=== PATIENT | female | born 1955 | race Two or more races ===

== ENCOUNTER → 2024-06-19 | Outpatient (CLI) | payer MEDICARE, MEDICAID, SELFPAY ==
[2024-06-19 08:48] LABS: Glucose Estimated Average 134 mg/dL (80-131); Hemoglobin A1C 6.3 % Hgb (4.8-6.0)
[2024-06-19 08:59] LABS: Anion Gap 5 (7-16); BUN/Creatinine Ratio 16 Ratio (12-20); Blood Urea Nitrogen 21 mg/dL (9-23); Calcium 10.4 mg/dL (8.3-10.6); Carbon Dioxide 32.2 mMol/L (20.0-31.0); Chloride 103 mMol/L (98-107); Creatinine (Component) 1.3 mg/dL (0.6-1.3); Glucose 84 mg/dL (74-106); Osmolality,Calculated 281 (275-295); Potassium 4.6 mMol/L (3.4-5.1); Sodium 140 mMol/L (136-145); eGFR 44 See Note
== END | disposition home or self-care (01) ==
PROVIDERS: PCP Family Medicine; Referring Provider Family Medicine; Visit Provider Family Medicine
DX: E11.65 Type 2 diabetes mellitus with hyperglycemia (principal)
CPT/HCPCS: 36415; 80048; 83036

== ENCOUNTER → 2024-09-12 | Outpatient (CLI) | payer MEDICARE, MEDICAID, SELFPAY ==
[2024-09-12 08:48] LABS: Anion Gap 7 (7-16); BUN/Creatinine Ratio 15 Ratio (12-20); Blood Urea Nitrogen 20 mg/dL (9-23); Calcium 9.6 mg/dL (8.3-10.6); Carbon Dioxide 31.7 mMol/L (20.0-31.0); Chloride 102 mMol/L (98-107); Creatinine (Component) 1.3 mg/dL (0.6-1.3); Glucose 92 mg/dL (74-106); Osmolality,Calculated 283 (275-295); Potassium 4.6 mMol/L (3.4-5.1); Sodium 141 mMol/L (136-145); eGFR 44 See Note
[2024-09-12 08:52] LABS: Creatinine MALB Rnd Ur 30 mg/dL (30-125); Microalbumin Creat Ratio 13 mg/gCrea (<30); Microalbumin, Random Urine 4 mg/L (0-300)
[2024-09-12 09:00] LABS: Glucose Estimated Average 137 mg/dL (80-131); Hemoglobin A1C 6.4 % Hgb (4.8-6.0)
== END | disposition home or self-care (01) ==
LOC: COPL 07:01
PROVIDERS: PCP Family Medicine; Referring Provider Family Medicine; Visit Provider Family Medicine
DX: E11.65 Type 2 diabetes mellitus with hyperglycemia (principal)
CPT/HCPCS: 36415; 80048; 82043; 82570; 83036

== ENCOUNTER → 2024-12-11 | Outpatient (CLI) | payer MEDICARE, MEDICAID, SELFPAY ==
[2024-12-11 08:58] LABS: Glucose Estimated Average 131 mg/dL (80-131); Hemoglobin A1C 6.2 % Hgb (4.8-6.0)
== END | disposition home or self-care (01) ==
LOC: COPL 07:14
PROVIDERS: PCP Family Medicine; Referring Provider Family Medicine; Visit Provider Family Medicine
DX: E11.21 Type 2 diabetes mellitus with diabetic nephropathy (principal)
CPT/HCPCS: 36415; 83036

== ENCOUNTER → 2024-12-16 | Outpatient (CLI) | payer MEDICARE, MEDICAID, SELFPAY ==
[2024-12-16 14:55] LABS: Collection Type, Urine Clean Catch
[2024-12-16 16:53] LABS: Bacteria,Urine Rare; Bilirubin,Urine Negative (Negative); Blood,Urine Negative (Negative); Clarity,Urine Clear (Clear/Hazy); Color,Urine Lt-Yellow (Lt Yel-Yel); Glucose, Urine 4+ (Negative); Ketones,Urine Negative (Negative); Leukocyte Esterase,Urine Positive (Negative); Nitrite,Urine Negative (Negative); PH,Urine 7.5 (5.0-7.0); Protein,Urine Negative (Neg - Trace); RBC,Urine 3 /hpf (0-3); Specific Gravity,Urine 1.015 (1.001-1.035); Squamous Epithelial Cell,Urine < 1 /hpf (0-5); Triple Phosphate Crystal,Urine Rare; Urobilinogen,Urine Negative mg/dL (0.0-1.0); WBC,Urine 129 /hpf (0-5)
== END | disposition home or self-care (01) ==
LOC: SLDO 14:51
PROVIDERS: Referring Provider Family Medicine; Visit Provider Family Medicine
DX: N30.00 Acute cystitis without hematuria (principal)
CPT/HCPCS: 81001; 87077; 87086; 87186

== ENCOUNTER → 2025-01-14 | Outpatient (CLI) | payer MEDICARE, MEDICAID, SELFPAY ==
--- NOTE | 2025-01-14 10:30 | XR_ITS ---
Examination: Screening digital mammography, bilateral Computer aided detection 3-D breast Tomosynthesis, bilateral Date and time of exam: January 14, 2025 1005 hours Compared to mammograms dating to January 02, 2020 Indication: Screening Technique: Nonmagnified MLO, CC views of the breasts to been obtained, reconstructed from 3-D Tomosynthesis images. R2 computer aided detection program utilized for evaluation of suspicious masses and/or abnormal calcifications. 3-D Tomosynthesis images obtained. Findings: Scattered areas of fibroglandular density 8mm focal asymmetry upper left breast posterior depth, 6.9 cm from the nipple Impression: BI-RADS Category 0: Incomplete: Need additional imaging evaluation Recommend follow-up spot tomographic views of 8 mm focal asymmetry upper left breast posterior depth, 6.9 cm from the nipple, that is spot tomographic views upper outer quadrant left breast as well as left breast sonography to complete the workup
== END | disposition home or self-care (01) ==
PROVIDERS: PCP Family Medicine; Referring Provider Family Medicine; Visit Provider Family Medicine
DX: Z12.31 Encounter for screening mammogram for malignant neoplasm of breast (principal); R92.323 Mammographic fibroglandular density, bilateral breasts; N64.89 Other specified disorders of breast
CPT/HCPCS: 77063; 77067

== ENCOUNTER → 2025-01-16 | Outpatient (CLI) | payer MEDICARE, MEDICAID, SELFPAY ==
--- NOTE | 2025-01-16 11:30 | XR_ITS ---
Examination: Retroperitoneal ultrasound, complete Technique: Multiple high resolution grayscale images of the retroperitoneum obtained, including kidneys and bladder. Exam date and time:January 16, 2025 1132 hours INDICATIONS: Recurrent urinary tract infections beginning one month ago FINDINGS: Right kidney 8.9 cm cortex 1.4 cm Left kidney 9.4 cm cortex 1.5 cm 7 mm midpole left renal calculus Mild renal parenchymal scar formation No bladder mass, bladder prevoid volume 595 cc Incidental note right lobe liver lesion vascular 5.6 x 5.4 x 5.7 cm IMPRESSION: 7 mm midpole left renal calculus No hydronephrosis Recommend CT scan abdomen pelvis pre and post intravenous contrast to assess vascular right lobe liver lesion 5.6 x 5.4 x 5.7 cm
== END | disposition home or self-care (01) ==
LOC: CDIM 11:18
PROVIDERS: PCP Family Medicine; Referring Provider Family Medicine; Visit Provider Family Medicine
DX: N20.0 Calculus of kidney (principal); N28.89 Other specified disorders of kidney and ureter; K76.9 Liver disease, unspecified
CPT/HCPCS: 76770

== ENCOUNTER → 2025-01-27 | Outpatient (CLI) | payer MEDICARE, MEDICAID, SELFPAY ==
[2025-01-27 09:07] LABS: Anion Gap 9 (7-16); BUN/Creatinine Ratio 18 Ratio (12-20); Blood Urea Nitrogen 24 mg/dL (9-23); Carbon Dioxide 30.5 mMol/L (20.0-31.0); Chloride 103 mMol/L (98-107); Creatinine (Component) 1.3 mg/dL (0.6-1.3); Glucose 111 mg/dL (74-106); Osmolality,Calculated 288 (275-295); Potassium 5.2 mMol/L (3.4-5.1); Sodium 142 mMol/L (136-145); eGFR 44 See Note
== END | disposition home or self-care (01) ==
LOC: COPL 07:34
PROVIDERS: PCP Family Medicine; Referring Provider Family Medicine; Visit Provider Family Medicine
DX: I10 Essential (primary) hypertension (principal); E11.65 Type 2 diabetes mellitus with hyperglycemia; K76.89 Other specified diseases of liver
CPT/HCPCS: 36415; 80048

== ENCOUNTER → 2025-02-05 | Outpatient (CLI) | payer MEDICARE, MEDICAID, SELFPAY ==
--- NOTE | 2025-02-05 09:15 | XR_ITS ---
Examination: Breast ultrasound, unilateral, left Date and time of exam: February 05, 2025 0925 hours INDICATIONS: Mammogram January 14, 2025 8mm focal asymmetry upper left breast MLO view Technique: Real-time blackmon scale ultrasonographic imaging performed left breast including all 4 quadrants as well as nipple retroareolar and axillary region. Findings: No cystic or solid mass IMPRESSION: BI-RADS Category 1: Negative study
--- NOTE | 2025-02-05 09:45 | XR_ITS ---
Examination: Diagnostic digital mammography, unilateral, left Computer aided detection 3-D breast Tomosynthesis, unilateral Date and time of exam: February 05, 2025 0941 hours INDICATIONS: Mammogram January 14, 2025 8mm focal asymmetry upper left breast MLO view, 6.9 cm from the nipple Technique: Nonmagnified MLO, CC views of the left breast have been obtained, reconstructed from 3-D Tomosynthesis images. R2 computer aided detection program utilized for evaluation of suspicious masses and/or abnormal calcifications. 3-D Tomosynthesis images obtained. Findings: Scattered areas of fibroglandular density No suspicious nodule is noted on the spot compression views Impression: BI-RADS category 2: Benign findings Return to yearly follow-up mammography
== END | disposition home or self-care (01) ==
PROVIDERS: PCP Family Medicine; Referring Provider Family Medicine; Visit Provider Family Medicine
DX: R92.322 Mammographic fibroglandular density, left breast (principal)
CPT/HCPCS: 76641; 77061; 77065; G0279

== ENCOUNTER → 2025-02-09 | Outpatient (CLI) | payer MEDICARE, MEDICAID, SELFPAY ==
--- NOTE | 2025-02-09 14:00 | XR_ITS ---
Examination: CT abdomen with intravenous contrast CT pelvis with intravenous contrast 2-D coronal reconstructions 2-D sagittal reconstructions Date and time of exam:February 09, 2025 1407 hours.. Comparison April 05, 2017 INDICATIONS: Diagnosis of the specified diseases of the liver CTDI: vol (mGy) 5.47 DLP: (mGycm) 292 Technique: Multiple axial sections of the abdomen and pelvis have been obtained. 64 slice high-resolution scanner used. 3 mm axial sections have been obtained, post intravenous injection 60 cc [id number] 2-D sagittal, coronal reconstructions obtained. Low dose protocols were performed. One or more of the following dose reduction techniques were used; automated exposure control, adjustment of the mA and/or KV according to patient size, use of iterative reconstruction technique. Findings: Mild enlargement cardiac contour Right lobe liver lesion, 5 cm No gallstones Spleen not enlarged Retrocardiac gastric hernia No renal or ureteral calculi, no hydronephrosis Aortic calcification no aneurysmal dilatation The soft tissue nodules in the anterior abdominal wall are again noted There is an additional soft tissue nodule, total 3 currently, the largest measuring 20 mm Normal appendix No bowel obstruction Intact urinary bladder Significant osteopenia IMPRESSION: 5 cm liver lesion, differential would include primary hepatocellular carcinoma, hepatic metastasis, recommend MRI abdomen follow-up pre and postcontrast
== END | disposition home or self-care (01) ==
LOC: CCTX 13:43
PROVIDERS: PCP Family Medicine; Referring Provider Family Medicine; Visit Provider Family Medicine
DX: K76.9 Liver disease, unspecified (principal)
CPT/HCPCS: 74177; A4649; Q9967

== ENCOUNTER 2025-02-25 07:56 | Outpatient (CLI) | payer MEDICARE, MEDICAID, SELFPAY ==
[2025-02-23 08:45] VITALS: BMI 24.1
[2025-02-24 08:41] LABS: Basophils # (Auto) 0.0 Thou/mm3 (0.0-0.2); Basophils % (Auto) 0 % (0-2.5); Eosinophils # (Auto) 0.1 Thou/mm3 (0.0-0.5); Eosinophils % (Auto) 2 % (0-10); Hematocrit 43.8 % (36.0-46.0); Hemoglobin 14.8 g/dL (12.0-16.0); Immature Granulocytes Auto 0.00 Thou/mm3 (0.00-0.00); Lymphocytes # (Auto) 1.7 Thou/mm3 (1.0-4.8); Lymphocytes % (Auto) 36 % (10-50); Mean Corpuscular HGB Conc 33.8 g/dl (31.0-37.0); Mean Corpuscular Hemoglobin 33.0 pg (25.0-35.0); Mean Corpuscular Volume 98 fL (80-100); Monocytes # (Auto) 0.4 Thou/mm3 (0.0-0.8); Monocytes % (Auto) 9 % (0-12); Neutrophils # (Auto) 2.5 Thou/mm3 (1.8-7.7); Neutrophils % (Auto) 53 % (37-80); Nucleated Red Blood Cell # 0.00 Thou/mm3 (0.00-0.00); Nucleated Red Blood Cell % 0 /100 WBC (0); Platelet Count 212 Thou/mm3 (140-440); RDW Standard Deviation 45.6 fL (36.4-46.3); Red Blood Count 4.49 Miln/mm3 (4.00-5.20); White Blood Count 4.8 Thou/mm3 (3.6-11.0)
[2025-02-24 08:59] LABS: INR 1.0 (0.9-1.3); Partial Thromboplastin Time 29.0 Seconds (22.0-36.0); Prothrombin Time 11.4 Seconds (9.0-12.2)
[2025-02-24 09:10] LABS: Blood Urea Nitrogen 23 mg/dL (9-23); Creatinine (Component) 1.4 mg/dL (0.6-1.3); Estimated Creatinine Clearance 29.8 mL/min (>60); eGFR 40 See Note
[2025-02-25] VITALS (9 sets, daily range): BP systolic 143–169; BP diastolic 58–86; PULSE 56–65; RESP 12–19; TEMP 36.1–36.4; O2SAT 95–100
--- NOTE | 2025-02-25 08:30 | XR_ITS ---
Examination: CT-guided percutaneous biopsy right lobe liver lesion CT abdomen without intravenous contrast INDICATIONS: 5 cm right lobe liver lesion on CT abdomen pelvis February 09, 2025 Date and time of procedure: February 25, 2025 1124 hours Informed consent provided. A timeout was completed verifying correct patient, procedure, site and positioning. Technique: Axial 3 mm sections were obtained for localization of the right lobe liver lesion Appropriate area is marked. The patient's site was prepped and draped in sterile fashion Maximal sterile barrier technique utilized, including hand hygiene Local anesthesia was obtained with 1% lidocaine. Low dose protocols were performed. One or more of the following dose reduction techniques were used; automated exposure control, adjustment of the mA and/or KV according to patient size, use of iterative reconstruction technique. Utilizing CT fluoroscopic guidance 2 core biopsies obtained of the right lobe liver lesion utilizing an 18-gauge core needle Patient appears in stable condition during this procedure. At completion of the procedure, the patient is in satisfactory condition. Estimated blood loss 2 cc Complete pathology report to follow. Impression: Successful percutaneous biopsy right lobe liver lesion
[2025-02-25] MEDS: fentaNYL CIT INJ 50 mCg/ML AMP 2ML IVP (11:49)
--- NOTE | 2025-02-25 15:58 | PC.NURSE ---
1205 patient is awake, alert, breathing unlabored,s/p liver biopsy, dressing to right upper abdomen dry with no active bleeding, patient transferred to [facility] for 1hr recovery. 1245 patient awake, alert, breathing unlabored, dressing dry with no bleeding, patient able to tolerate food tray with no nausea or vomiting and is ready to be discharged home, report given to Sary MARIN who will discharge patient home
== END 2025-02-25 13:06 | disposition home or self-care (01) ==
PROVIDERS: Radiology Diagnostic Radiology; PCP Family Medicine; Referring Provider Family Medicine; Visit Provider Family Medicine
DX: D13.4 Benign neoplasm of liver (principal); K74.69 Other cirrhosis of liver; Z01.812 Encounter for preprocedural laboratory examination
CPT/HCPCS: 47000; 36415; 77012; 82565; 84520; 85025; 85610; 85730; J3010

== ENCOUNTER → 2025-03-06 | Outpatient (CLI) | payer MEDICARE, MEDICAID, SELFPAY ==
[2025-03-06 08:41] LABS: Glucose Estimated Average 137 mg/dL (80-131); Hemoglobin A1C 6.4 % Hgb (4.8-6.0)
[2025-03-06 08:56] LABS: Cardiac Risk Estimate 2.5 RATIO (3.7-5.6); Cholesterol 177 mg/dL (132-200); HDL Cholesterol 70 mg/dL (40-60); LDL Cholesterol,Calculated 90 mg/dL (0-130); Triglycerides 85 mg/dL (30-150)
== END | disposition home or self-care (01) ==
LOC: COPL 07:46
PROVIDERS: PCP Family Medicine; Referring Provider Family Medicine; Visit Provider Family Medicine
DX: E11.65 Type 2 diabetes mellitus with hyperglycemia (principal)
CPT/HCPCS: 36415; 80061; 83036

== ENCOUNTER 2025-04-20 11:45 | Day surgery (SDC) | payer MEDICARE, MEDICAID, SELFPAY ==
[2025-04-20] VITALS (10 sets, daily range): BP systolic 133–227; BP diastolic 65–97; PULSE 60–68; RESP 12–18; TEMP 36.4–36.7; O2SAT 95–100; BMI 24.0
[2025-04-20] MEDS: DEXTROSE 50%-WATER INJ 50 ML SYRINGE 25 ML IVP (12:42)
[2025-04-20] MEDS: DEXTROSE 5%-WATER 500 ML 20 ML IV (13:22)
[2025-04-20] MEDS: hydrALAZINE INJ 20 MG/ML VIAL 10 MG IVP (13:24)
[2025-04-20] MEDS: MIDAZOLAM INJ 1 MG/ML VIAL 2 ML (ASD USE ONLY) 2 MG IVP (13:30)
[2025-04-20] MEDS: fentaNYL CIT INJ 50 mCg/ML AMP 2ML (ASD USE ONLY) IVP (13:32)
--- NOTE | 2025-04-20 14:06 | SUR.PHASEII ---
PT MORE AWAKE SITTING IN HIGH [employer] DRINKING WATER. PT REPORTED MILD DIZINESS.
== END 2025-04-20 14:24 | disposition home or self-care (01) ==
PROVIDERS: PCP Family Medicine; Referring Provider Specialist; Visit Provider Specialist
PROC: 0DBE8ZX Excision of Large Intestine, Via Natural or Artificial Opening Endoscopic, Diagnostic (ICD-10-PCS; CPT 45380; principal; 2025-04-20 12:15)
DX: Z12.11 Encounter for screening for malignant neoplasm of colon (principal); K64.1 Second degree hemorrhoids; K57.30 Diverticulosis of large intestine without perforation or abscess without bleeding
CPT/HCPCS: G0121; A4217; A4649; J0360; J1200; J2250; J3010; J7060

== ENCOUNTER → 2025-05-19 | Outpatient (CLI) | payer MEDICARE, MEDICAID, SELFPAY ==
[2025-05-19 09:45] LABS: Alanine Aminotransferase 28 U/L (10-49); Albumin, Serum 5.1 gm/dL (3.4-4.8); Alkaline Phosphatase 160 U/L (46-116); Aspartate Amino Transferase 35 U/L (0-34); Bilirubin,Direct 0.3 mg/dL (0.0-0.3); Bilirubin,Total 1.4 mg/dL (0.3-1.2); Total Protein 7.7 gm/dL (5.7-8.2)
[2025-05-19 10:00] LABS: INR 1.0 (0.9-1.3); Prothrombin Time 10.7 Seconds (9.0-12.2)
[2025-05-19 11:29] LABS: Ferritin 39 ng/mL (7.3-270.7); Iron 109 mcg/dL (50-170); Percent Iron Saturation 30 % (20-55); Total Iron Binding Capacity 357 mcg/dL (250-425); Unsaturated Iron Binding 248 (225-295)
[2025-05-19 12:22] LABS: AFP Non-Pregnant < 1.30 ng/mL (<8.10); Hepatitis A Antibody IgM Non Reactive (Non React); Hepatitis B Core Antibody IgM Non Reactive (Non React); Hepatitis B Surface Antigen Non Reactive (Non React); Hepatitis C Antibody Non Reactive (Non React)
[2025-05-22 06:22] LABS: ACTH, Plasma* 35 pg/mL (6-50)
[2025-05-26 06:30] LABS: ANA Screen, IFA POSITIVE (NEGATIVE); ANA Titer 1:160 titer; Alpha-1-Antitrypsin* 149 mg/dL (83-199); Ceruloplasmin* 28 mg/dL (14-48); Copper* 133 mcg/dL (70-175); Mitochondrial Ab NEGATIVE (NEGATIVE)
== END | disposition home or self-care (01) ==
LOC: COPL 08:27
PROVIDERS: PCP Family Medicine; Referring Provider Specialist; Visit Provider Specialist
DX: E78.9 Disorder of lipoprotein metabolism, unspecified (principal)
CPT/HCPCS: 36415; 80074; 80076; 82024; 82103; 82105; 82390; 82525; 82728; 83540; 83550; 85610; 86038; 86255

== ENCOUNTER → 2025-05-28 | Outpatient (CLI) | payer MEDICARE, MEDICAID, SELFPAY ==
--- NOTE | 2025-05-28 10:30 | XR_ITS ---
Examination: Abdomen sonogram, Limited Date and time of exam: May 28, 2025, 1030 hours INDICATIONS: History liver lesion, right lobe liver biopsy Technique: Real-time blackmon scale transabdominal sonographic images of the upper abdomen obtained. Findings: Normal gallbladder. Normal common bile duct 0.6 cm no stones Pancreatic head 2.1 cm Liver 11.6 cm fatty infiltration Right lobe vascular liver lesion 6.1 x 6.4 cm Normal hepatopetal portal venous flow Patent IVC IMPRESSION: Vascular right lobe liver lesion, please see the CT abdomen pelvis report February 09, 2025
== END | disposition home or self-care (01) ==
PROVIDERS: PCP Family Medicine; Referring Provider Specialist; Visit Provider Specialist
DX: K76.9 Liver disease, unspecified (principal)
CPT/HCPCS: 76705

== ENCOUNTER → 2025-06-02 | Outpatient (CLI) | payer MEDICARE, MEDICAID, SELFPAY ==
[2025-06-02 12:01] LABS: Misc Send Out* See Sep Rpt
[2025-06-02 14:28] LABS: RA Screen Negative (Negative)
[2025-06-09 19:50] LABS: Sjogren's antibody (SS-A) <1.0 NEG AI (<1.0 NEGATIVE); Sm Antibody <1.0 NEG AI (<1.0 NEGATIVE)
[2025-06-10 06:22] LABS: ANA Screen, IFA NEGATIVE (NEGATIVE); DNA (ds) Antibody* <1 IU/mL; Mitochondrial Ab NEGATIVE (NEGATIVE); Sjogren's Antibody (SS-B) <1.0 NEG AI (<1.0 NEGATIVE); Striated Muscle Ab NEGATIVE (NEGATIVE)
[2025-06-10 06:23] LABS: Actin Antibody (IgG)* <20 U; Complement Component C3* 127 mg/dL (83-193); Complement Component C4c* 15 mg/dL (15-57); Gastric Parietal Cell Ab* <20.0 U; Myocardial Ab, IF NEGATIVE (NEGATIVE); Scl-70 Antibody* <1.0 NEG AI (<1.0 NEGATIVE); Sm/RNP Antibody <1.0 NEG AI (<1.0 NEGATIVE); Thyroid Peroxidase Antibodies* <1 IU/mL (<9)
== END | disposition home or self-care (01) ==
LOC: COPL 11:26
PROVIDERS: PCP Family Medicine; Referring Provider Specialist; Visit Provider Specialist
DX: K29.70 Gastritis, unspecified, without bleeding (principal); R53.81 Other malaise; R53.83 Other fatigue
CPT/HCPCS: 36415; 83516; 86015; 86038; 86160; 86225; 86235; 86255; 86376; 86430

== ENCOUNTER → 2025-06-12 | Outpatient (CLI) | payer MEDICARE, MEDICAID, SELFPAY ==
[2025-06-12 10:34] LABS: Basophils # (Auto) 0.0 Thou/mm3 (0.0-0.2); Basophils % (Auto) 0 % (0-2.5); Eosinophils # (Auto) 0.1 Thou/mm3 (0.0-0.5); Eosinophils % (Auto) 1 % (0-10); Hematocrit 40.5 % (36.0-46.0); Hemoglobin 13.4 g/dL (12.0-16.0); Immature Granulocytes Auto 0.02 Thou/mm3 (0.00-0.00); Lymphocytes # (Auto) 1.6 Thou/mm3 (1.0-4.8); Lymphocytes % (Auto) 17 % (10-50); Mean Corpuscular HGB Conc 33.1 g/dl (31.0-37.0); Mean Corpuscular Hemoglobin 32.7 pg (25.0-35.0); Mean Corpuscular Volume 99 fL (80-100); Monocytes # (Auto) 0.9 Thou/mm3 (0.0-0.8); Monocytes % (Auto) 10 % (0-12); Neutrophils # (Auto) 6.5 Thou/mm3 (1.8-7.7); Neutrophils % (Auto) 71 % (37-80); Nucleated Red Blood Cell # 0.00 Thou/mm3 (0.00-0.00); Nucleated Red Blood Cell % 0 /100 WBC (0); Platelet Count 220 Thou/mm3 (140-440); RDW Standard Deviation 46.2 fL (36.4-46.3); Red Blood Count 4.10 Miln/mm3 (4.00-5.20); White Blood Count 9.1 Thou/mm3 (3.6-11.0)
[2025-06-12 10:49] LABS: Glucose Estimated Average 128 mg/dL (80-131); Hemoglobin A1C 6.1 % Hgb (4.8-6.0)
[2025-06-12 10:58] LABS: Alanine Aminotransferase 18 U/L (10-49); Albumin, Serum 4.7 gm/dL (3.4-4.8); Albumin/Globulin Ratio 2.1 (1.2-2.2); Alkaline Phosphatase 151 U/L (46-116); Anion Gap 10 (7-16); Aspartate Amino Transferase 27 U/L (0-34); BUN/Creatinine Ratio 16 Ratio (12-20); Bilirubin,Total 1.7 mg/dL (0.3-1.2); Blood Urea Nitrogen 21 mg/dL (9-23); Calcium 9.9 mg/dL (8.3-10.6); Calcium (Corrected) 9.9 mg/dL (8.5-10.1); Carbon Dioxide 30.0 mMol/L (20.0-31.0); Chloride 103 mMol/L (98-107); Creatinine (Component) 1.3 mg/dL (0.6-1.3); Globulin 2.2 gm/dL (2.3-3.5); Glucose 114 mg/dL (74-106); Osmolality,Calculated 288 (275-295); Potassium 4.3 mMol/L (3.4-5.1); Sodium 143 mMol/L (136-145); Total Protein 6.9 gm/dL (5.7-8.2); eGFR 44 See Note
[2025-06-12 11:49] LABS: Hepatitis A Antibody IgM Non Reactive (Non React); Hepatitis B Core Antibody IgM Non Reactive (Non React); Hepatitis B Surface Antigen Non Reactive (Non React); Hepatitis C Antibody Non Reactive (Non React)
== END | disposition home or self-care (01) ==
LOC: COPL 09:02
PROVIDERS: PCP Family Medicine; Referring Provider Family Medicine; Visit Provider Family Medicine
DX: K74.60 Unspecified cirrhosis of liver (principal); E11.65 Type 2 diabetes mellitus with hyperglycemia
CPT/HCPCS: 36415; 80053; 80074; 83036; 85025